=== PATIENT | female | born 1990 | race Asian ===

== ENCOUNTER 2017-03-05 13:30 | Day surgery (SDC) | payer SELFPAY ==
[~2017-03-05] VITALS: Ht 149.9 cm; Wt 67.7 kg
[2017-03-05] MEDS ORDERED: ADVIL100 MG PO (13:50)
== END 2017-03-05 17:09 | disposition home or self-care (01) ==
LOC: ORSCSDS 13:30
PROVIDERS: Orthopaedic Surgery
PROC: 0SBC4ZZ Excision of Right Knee Joint, Percutaneous Endoscopic Approach (ICD-10-PCS; principal; 2017-03-05 14:30)
PROC: 0MNN4ZZ Release Right Knee Bursa and Ligament, Percutaneous Endoscopic Approach (ICD-10-PCS; principal; 2017-03-05 14:30)
DX: S83.281A Other tear of lateral meniscus, current injury, right knee, initial encounter (principal)
CPT/HCPCS: J0171; J0690; J1100; J1885; J2250; J2405; J3010; J7120